=== PATIENT | female | born 1960 | race Caucasian/White ===

== ENCOUNTER 2017-04-29 12:54 | Emergency (ER) | payer OTHER ==
[2017-04-29] MEDS: HYDROCODONE/APAP (5/325) TAB PO (15:07)
[2017-04-29] MEDS: DEXAMETHASONE 10 MG/ML 1 ML INJ IV (15:08)
[2017-04-29] MEDS: KETOROLAC 30 MG INJ IV (15:09)
[2017-04-29] MEDS: CEFTRIAXONE 1 GM/50 ML (PMX) 50 ML IVPB (15:11)
== END 2017-04-29 16:03 | disposition home or self-care (01) ==
LOC: FTE 12:54
DX: H65.191 Other acute nonsuppurative otitis media, right ear (principal); J20.9 Acute bronchitis, unspecified; A49.9 Bacterial infection, unspecified
CPT/HCPCS: 96374; 96375; 99284-25

== ENCOUNTER 2018-08-26 12:09 | Emergency (ER) | payer OTHER ==
[2018-08-26] MEDS: KETOROLAC 30 MG INJ IM (13:42)
[2018-08-26] MEDS: HYDROmorphONE 2 MG/ML SYG IM (13:42)
[2018-08-26] MEDS: ONDANSETRON (ODT) 4 MG TAB ODT (14:26)
[2018-08-26 14:39] LABS: URINE PH (Dip) POC 7.5 (5.0-8.5)
[2018-08-26 14:39] LABS: URINE BLOOD (Dip) POC 2+ (NEGATIVE); URINE GLUCOSE (Dip) POC Negative (NEGATIVE); URINE KETONES (Dip) POC Negative (NEGATIVE); URINE LEUKOCYTE EST (Dip) POC 1+ (NEGATIVE); URINE NITRITE (Dip) POC Negative (NEGATIVE); URINE TOTAL PROTEIN POC 1+ (NEGATIVE)
== END 2018-08-26 15:15 | disposition home or self-care (01) ==
LOC: E/R 12:09
DX: M54.5 Low back pain (principal)
CPT/HCPCS: 81003; 96372; 99284-25